=== PATIENT | male | born 1970 | race Caucasian/White ===

== ENCOUNTER 2016-09-24 08:17 | Emergency (ER) | payer MEDICAID ==
[~2016-09-24] VITALS: Ht 182.9 cm; Wt 127.0 kg
[2016-09-24 08:48] VITALS: BP_SYST 139
--- NOTE | 2016-09-24 08:53 | NUR ---
PATIENT TO ER BED 6.PER PATIENT HIS HEAD WAS HIT BY A BALL WHILE PLAYING WITH HIS SON ON WEDNESDAY TOOK MEDICINE BUT DID NOT HELP.PATIENT IS COMPLAINING OF SEVERE HEADACHE AND DIZZINESS STATED "I CAN'T TOLERATE BRIGHT LIGHTS".NO OTHER COMPLAIN/INJURIES PER PATIENT OR NOTED.
--- NOTE | 2016-09-24 08:57 | NUR ---
Triage at bedside Placed in room 06 . Placed on phototypesetting equipment monitor, blood pressure machine and pulse oximeter. To gown for exam. Side rails up. Report given to Joleen.
[2016-09-24] MEDS ORDERED: PROCHLORPERAZINE EDISYLATE 10 MG/2 ML VIAL IM ONE (09:00)
[2016-09-24] MEDS: ACETAMINOPHEN 500 MG TABLET PO ONE ×2 (09:02→09:09)
--- NOTE | 2016-09-24 09:11 | NUR ---
MARION Jalloh at bedside examining patient.
[2016-09-24] MEDS ORDERED: LORazepam 2 MG/ML VIAL (FOR ER USE) IM ONE (09:30)
[2016-09-24] MEDS ORDERED: FAMOTIDINE 20 MG TABLET PO ONE (09:30)
[2016-09-24] MEDS ORDERED: DIPHENHYDRAMINE INJ 50 MG/ML VIAL IM ONE (09:30)
--- NOTE | 2016-09-24 09:39 | NUR ---
PATIENT TO RADIOLOGY FOR CT
[2016-09-24 10:08] LABS: BASOPHILS % (AUTO) 0.5 % (0.0-2.0); EOSINOPHILS # (AUTO) 0.1 K/uL (0.0-0.4); EOSINOPHILS % (AUTO) 1.1 % (0.0-4.0); HEMATOCRIT 43.9 % (36-54); HEMOGLOBIN 14.2 g/dL (14.0-18.0); LYMPHOCYTES # (AUTO) 2.1 K/uL (1.0-5.5); LYMPHOCYTES % (AUTO) 20.7 % (20.5-51.5); MEAN CORPUSCULAR HEMOGLOBIN 27 pg (27-31); MEAN CORPUSCULAR HGB CONC 32 % (32-36); MEAN CORPUSCULAR VOLUME 85 fL (79.0-98.0); MONOCYTES # (AUTO) 1.1 K/uL (0.0-1.0); MONOCYTES % (AUTO) 11.3 % (1.7-9.3); NEUTROPHILS # (AUTO) 6.7 K/uL (1.8-7.7); NEUTROPHILS % (AUTO) 66.4 % (40.0-70.0); PLATELET COUNT (AUTO) 236 K/uL (130-430); RED BLOOD CELL COUNT(AUTO) 5.17 MIL/uL (4.2-6.2); RED CELL DISTRIBUTION WIDTH 14.6 % (9.0-15.0)
[2016-09-24 10:36] LABS: CALCIUM 8.7 mg/dL (8.4-11.0); CREATININE 0.79 mg/dL (0.55-1.30); POTASSIUM 4.5 mmol/L (3.5-5.1)
[2016-09-24 10:38] LABS: ALBUMIN 3.3 g/dL (3.4-4.8); TOTAL BILIRUBIN 0.4 mg/dL (0.0-1.0); TOTAL PROTEIN, SERUM 6.8 g/dL (6.4-8.3)
[2016-09-24] MEDS ORDERED: KETOROLAC TROMETHAMINE 60 MG/2 ML VIAL IM ONE (11:15)
[2016-09-24 11:33] VITALS: BP_SYST 133
--- NOTE | 2016-09-24 11:33 | NUR ---
Patient given written and verbal discharge instructions and verbalizes understanding. ER MD discussed with patient the results and treatment provided. Patient in stable condition. ID arm band removed. Patient educated on pain management and to follow up with PMD. Pain Scale 2/10 . Opportunity for questions provided and answered.
== END 2016-09-24 11:33 | disposition home or self-care (01) ==
LOC: SED 08:17
DX: S00.93XA Contusion of unspecified part of head, initial encounter (principal); Y93.64 Activity, baseball; Y92.89 Other specified places as the place of occurrence of the external cause; Y99.8 Other external cause status
CPT/HCPCS: 36415; 70450; 80053; 85025; 96372; 99285; J0780; J1200; J2060

== ENCOUNTER 2019-05-29 22:20 | Inpatient (IN) | payer MEDICAID ==
[~2019-05-29] VITALS: Ht 188 cm; Wt 105.7 kg
[2019-05-29 22:20] VITALS: BP_SYST 140
[~2019-05-29 22:20] MED LIST: AMOX250C PO; CHOL200075 PO; FURO-149 PO; GABA800T PO; GLU500 PO; IBUP-1970 PO; SIMV10TA2 PO
[2019-05-29 23:27] LABS: BASOPHILS # (AUTO) 0.1 K/uL (0.0-0.2); BASOPHILS % (AUTO) 0.4 % (0.0-2.0); EOSINOPHILS % (AUTO) 0.1 % (0.0-4.0); HEMATOCRIT 40.6 % (36-54); LYMPHOCYTES # (AUTO) 1.7 K/uL (1.0-5.5); LYMPHOCYTES % (AUTO) 11.9 % (20.5-51.5); MEAN CORPUSCULAR HEMOGLOBIN 27 pg (27-31); MEAN CORPUSCULAR HGB CONC 32 % (32-36); MEAN CORPUSCULAR VOLUME 85 fL (79.0-98.0); MONOCYTES # (AUTO) 1.4 K/uL (0.0-1.0); MONOCYTES % (AUTO) 9.9 % (1.7-9.3); NEUTROPHILS # (AUTO) 11.1 K/uL (1.8-7.7); NEUTROPHILS % (AUTO) 77.7 % (40.0-70.0); PLATELET COUNT (AUTO) 241 K/uL (130-430); RED BLOOD CELL COUNT(AUTO) 4.75 MIL/uL (4.2-6.2); WHITE BLOOD COUNT (AUTO) 14.3 K/uL (4.8-10.8)
[2019-05-29 23:38] LABS: CALCIUM 8.1 mg/dL (8.4-11.0); CREATININE 1.28 mg/dL (0.55-1.30); POTASSIUM 3.4 mmol/L (3.5-5.1)
[2019-05-29 23:44] LABS: ALBUMIN 2.6 g/dL (3.4-4.8); TOTAL BILIRUBIN 0.9 mg/dL (0.0-1.0)
[2019-05-30] MEDS ORDERED: PIPERACILLIN/TAZO 3.375 GM in NS 50 ML IV ONE (00:15)
[2019-05-30] MEDS ORDERED: ASPIRIN 81 MG TAB.CHEW PO ONE (00:15)
[2019-05-30] MEDS ORDERED: NITROGLYCERIN LINGUAL 400 mCg/SPRAY SL PRN (00:15)
[2019-05-30 00:58] LABS: INR 1.1 (0.80-1.20); PROTHROMBIN TIME 10.8 SECS (9.5-12.5)
[2019-05-30] MEDS ORDERED: TEMAZEPAM 15 MG CAPSULE PO PRN (01:15)
[2019-05-30] MEDS ORDERED: METOCLOPRAMIDE HCL 10 MG/2 ML VIAL IVP PRN (01:15)
[2019-05-30] MEDS ORDERED: ONDANSETRON HCL 4 MG/2 ML VIAL IVP PRN ×2 (01:15→03:30)
[2019-05-30] MEDS ORDERED: PIPERACILLIN/TAZOBACTAM 3.375 GM/VIAL (ZOSYN) IV ONE (02:07)
[2019-05-30] MEDS ORDERED: MORPHINE 4 MG/ML INJ. SYRINGE IVP PRN (03:30)
[2019-05-30] MEDS ORDERED: cefTRIAXone 1 GM IVPB PREMIX 50 ML IV SCH (03:30)
[2019-05-30] MEDS ORDERED: ALBUTEROL SULFATE 0.083% 2.5 MG/3 ML VIAL.NEB INH PRN (03:30)
[2019-05-30] MEDS ORDERED: MORPHINE 2 MG/ML INJ. SYRINGE IVP PRN (03:30)
[2019-05-30 03:41] VITALS: BP_SYST 140
[2019-05-30] MEDS ORDERED: POTASSIUM CHLORIDE 10 MEQ TAB.PRT.SR PO SCH (03:45)
[2019-05-30] MEDS ORDERED: ENOXAPARIN SODIUM 100 MG/ML SYRINGE SUBCUT SCH (04:00)
[2019-05-30 04:02] VITALS: BP_SYST 125
[2019-05-30] MEDS ORDERED: cefTRIAXone 1 GM IVPB PREMIX 50 ML IV ONE (05:31)
[2019-05-30] MEDS: INSULIN LISPRO SLIDING SCALE 100 UNITS/ML VIAL (humaLOG) SUBCUT PRN ×3 (06:40→21:23)
[2019-05-30 08:27] LABS: BASOPHILS # (AUTO) 0.1 K/uL (0.0-0.2); BASOPHILS % (AUTO) 0.6 % (0.0-2.0); EOSINOPHILS # (AUTO) 0.1 K/uL (0.0-0.4); EOSINOPHILS % (AUTO) 0.8 % (0.0-4.0); HEMATOCRIT 39.6 % (36-54); HEMOGLOBIN 12.6 g/dL (14.0-18.0); LYMPHOCYTES # (AUTO) 2.4 K/uL (1.0-5.5); LYMPHOCYTES % (AUTO) 24.9 % (20.5-51.5); MEAN CORPUSCULAR HEMOGLOBIN 27 pg (27-31); MEAN CORPUSCULAR HGB CONC 32 % (32-36); MEAN CORPUSCULAR VOLUME 86 fL (79.0-98.0); MONOCYTES # (AUTO) 1.1 K/uL (0.0-1.0); MONOCYTES % (AUTO) 11.5 % (1.7-9.3); NEUTROPHILS # (AUTO) 6.1 K/uL (1.8-7.7); NEUTROPHILS % (AUTO) 62.2 % (40.0-70.0); PLATELET COUNT (AUTO) 226 K/uL (130-430); RED BLOOD CELL COUNT(AUTO) 4.58 MIL/uL (4.2-6.2); RED CELL DISTRIBUTION WIDTH 15.2 % (9.0-15.0); WHITE BLOOD COUNT (AUTO) 9.8 K/uL (4.8-10.8)
[2019-05-30 08:30] VITALS: BP_SYST 96
[2019-05-30] MEDS ORDERED: FUROSEMIDE 40 MG TABLET PO SCH (09:00)
[2019-05-30] MEDS ORDERED: FUROSEMIDE 20 MG/2 ML VIAL IVP ONE (09:00)
[2019-05-30] MEDS ORDERED: CARVEDILOL 6.25 MG TABLET (COREG) PO ONE (09:00)
[2019-05-30] MEDS ORDERED: LISINOPRIL 10 MG TABLET (PRINIVIL) PO ONE (09:00)
[2019-05-30 10:00] LABS: CALCIUM 8.4 mg/dL (8.4-11.0); CREATININE 1.19 mg/dL (0.55-1.30); POTASSIUM 3.3 mmol/L (3.5-5.1)
[2019-05-30 10:01] LABS: ALBUMIN 2.4 g/dL (3.4-4.8); TOTAL BILIRUBIN 0.5 mg/dL (0.0-1.0)
[2019-05-30] MEDS: ASPIRIN 325 MG TABLET PO SCH (10:06)
[2019-05-30] MEDS: GABAPENTIN 400 MG CAPSULE PO SCH ×3 (10:06→21:00)
[2019-05-30] MEDS ORDERED: POTASSIUM CHLORIDE 20 MEQ TAB.PRT.SR PO ONE (10:45)
[2019-05-30 12:32] VITALS: BP_SYST 98
[2019-05-30 16:45] VITALS: BP_SYST 115
[2019-05-30 20:00] VITALS: BP_SYST 137
[2019-05-30] MEDS ORDERED: ENOXAPARIN SODIUM 100 MG/ML SYRINGE SQ ONE (20:00)
[2019-05-30] MEDS: CARVEDILOL 6.25 MG TABLET (COREG) PO SCH (21:00)
[2019-05-30] MEDS: SIMVASTATIN 10 MG TABLET PO SCH (21:00)
[2019-05-31 00:28] VITALS: BP_SYST 119
[2019-05-31 07:25] LABS: ALBUMIN 2.3 g/dL (3.4-4.8); CALCIUM 8.5 mg/dL (8.4-11.0); CREATININE 0.97 mg/dL (0.55-1.30); POTASSIUM 3.8 mmol/L (3.5-5.1); THYROID STIMULATING HORMONE 2.05 uIu/mL (0.36-3.74); TOTAL BILIRUBIN 0.2 mg/dL (0.0-1.0)
[2019-05-31 07:44] LABS: BASOPHILS # (AUTO) 0.1 K/uL (0.0-0.2); BASOPHILS % (AUTO) 0.6 % (0.0-2.0); EOSINOPHILS # (AUTO) 0.1 K/uL (0.0-0.4); HEMATOCRIT 40.7 % (36-54); LYMPHOCYTES # (AUTO) 2.2 K/uL (1.0-5.5); MEAN CORPUSCULAR HEMOGLOBIN 28 pg (27-31); MEAN CORPUSCULAR HGB CONC 32 % (32-36); MEAN CORPUSCULAR VOLUME 86 fL (79.0-98.0); MONOCYTES # (AUTO) 0.9 K/uL (0.0-1.0); MONOCYTES % (AUTO) 11.7 % (1.7-9.3); NEUTROPHILS # (AUTO) 4.7 K/uL (1.8-7.7); NEUTROPHILS % (AUTO) 58.7 % (40.0-70.0); PLATELET COUNT (AUTO) 259 K/uL (130-430); RED BLOOD CELL COUNT(AUTO) 4.71 MIL/uL (4.2-6.2); RED CELL DISTRIBUTION WIDTH 15.3 % (9.0-15.0)
[2019-05-31 08:00] VITALS: BP_SYST 112
[2019-05-31] MEDS: GABAPENTIN 400 MG CAPSULE PO SCH (08:27)
[2019-05-31] MEDS: ASPIRIN 325 MG TABLET PO SCH (08:29)
[2019-05-31] MEDS: ENOXAPARIN SODIUM 100 MG/ML SYRINGE SQ SCH ×2 (08:30→23:54)
[2019-05-31] MEDS: CARVEDILOL 6.25 MG TABLET (COREG) PO SCH (08:30)
[2019-05-31] MEDS ORDERED: LISINOPRIL 10 MG TABLET (PRINIVIL) PO SCH (09:00)
[2019-05-31] MEDS ORDERED: FUROSEMIDE 20 MG/2 ML VIAL IVP SCH (09:00)
[2019-05-31] MEDS ORDERED: cefTRIAXone 1 GM IVPB PREMIX 50 ML IV SCH (09:00)
[2019-05-31] MEDS ORDERED: FUROSEMIDE 40 MG/4 ML VIAL IVP SCH ×2 (09:30→21:00)
[2019-05-31] MEDS ORDERED: FUROSEMIDE 20 MG/2 ML VIAL IVP ONE (09:45)
[2019-05-31] MEDS ORDERED: SPIRONOLACTONE 25 MG TABLET (ALDACTONE) PO ONE (10:00)
[2019-05-31 12:00] VITALS: BP_SYST 112
[2019-05-31 17:22] VITALS: BP_SYST 118
[2019-05-31 20:00] VITALS: BP_SYST 118
[2019-05-31] MEDS ORDERED: CARVEDILOL 12.5 MG TABLET (COREG) PO SCH (21:00)
[2019-05-31] MEDS: SIMVASTATIN 10 MG TABLET PO SCH (23:48)
[2019-06-01] MEDS: INSULIN LISPRO SLIDING SCALE 100 UNITS/ML VIAL (humaLOG) SUBCUT PRN (06:11)
[2019-06-01] MEDS ORDERED: SPIRONOLACTONE 25 MG TABLET (ALDACTONE) PO SCH (09:00)
== END 2019-06-01 07:30 | disposition left against medical advice (07) | DRG 194 ==
LOC: SED 22:20 → STU 05-30 01:04
PROVIDERS: ADMIT Internal Medicine Hospice and Palliative Medicine; ATTEND Internal Medicine Hospice and Palliative Medicine
DX: I11.0 Hypertensive heart disease with heart failure (principal); I21.4 Non-ST elevation (NSTEMI) myocardial infarction; E43 Unspecified severe protein-calorie malnutrition; L03.115 Cellulitis of right lower limb; E87.2 Acidosis; E87.1 Hypo-osmolality and hyponatremia; L03.116 Cellulitis of left lower limb; I50.43 Acute on chronic combined systolic (congestive) and diastolic (congestive) heart failure; E87.6 Hypokalemia; I25.10 Atherosclerotic heart disease of native coronary artery without angina pectoris; E11.9 Type 2 diabetes mellitus without complications; E78.5 Hyperlipidemia, unspecified; F12.90 Cannabis use, unspecified, uncomplicated; I42.0 Dilated cardiomyopathy; J44.9 Chronic obstructive pulmonary disease, unspecified; Z59.0 Homelessness; Z68.29 Body mass index [BMI] 29.0-29.9, adult; Z79.899 Other long term (current) drug therapy; Z91.013 Allergy to seafood; Z63.8 Other specified problems related to primary support group; Z83.3 Family history of diabetes mellitus; Z87.891 Personal history of nicotine dependence; Z91.19 Patient's noncompliance with other medical treatment and regimen
CPT/HCPCS: 36415; 71045; 80053; 80061; 82962; 83036; 83605; 83880; 84443-TC; 84484; 85025; 85610-TC; 85730-TC; 86710; 87040-TC; 93005; 93970; 99285; G0378; J0696; J1650; J1940; J2270; J2543

== ENCOUNTER 2019-07-09 07:57 | Emergency (ER) | payer MEDICAID ==
[~2019-07-09] VITALS: Ht 182.9 cm; Wt 99.8 kg
[2019-07-09 08:00] VITALS: BP_SYST 110
--- NOTE | 2019-07-09 08:10 | NUR ---
Patient to ER bed 2 to gown for evaluation. Side rails up. Report given to Josefina DOZIER.ER Tracy Mcdonald at bedside examining patient.
--- NOTE | 2019-07-09 08:10 | NUR ---
ER at bedside examining patient.
--- NOTE | 2019-07-09 08:10 | NUR ---
Patient arrived via ALS ambulance, patient repeating self. Per EMS report patient was at [facility] and per staff he was sitting in a kelley for over 1 hour prior to the police being called. Because of prior interactions with PD, they requested an ambulance because he is not acting the same as prior interactions. They were concerned regarding his well being. Patient states he went there for breakfast and did not receive it, and he just wants something to eat. Patient repeating himself. Patient is on Eliquis, and patient states he recently had a fall. Patients skin is diaphoretic, and patient states he was on Eliquis for DVT and PT. Patient also notes he takes metformin but denies diabetes. Patient states history of renal failure after taking 2700mg of gabapentin daily. Patient repeating same phrases. MD at bedside. Patient asked if he was saying the wrong things, and Dr. Esquivel told him he was repeating himself, patient states he was aware of this. Patient is tachycardic, but is stating he doesnt want any testing, he only wants something to eat. While waiting for breakfast tray, he was given orange juice. Patient states he already feels better. Patients blood glucose with EMS was 139mg/dl, and after 1 box of orange juice blood sugar rechecked at 150mg/dl. MD made aware. Patient states he has been sleeping sitting upright, and has had a cough for several months now. Patient initially refused all testing.
--- NOTE | 2019-07-09 08:25 | NUR ---
Patient refused EKG.
--- NOTE | 2019-07-09 08:27 | NUR ---
Patient refusing blood draw, wildlife refuge manager, further vital signs, and CT scan.
--- NOTE | 2019-07-09 08:56 | NUR ---
Patient ambulatory to restroom with steady gait. Patient is calm; however, non-compliant with further testing. MD aware, patient would like to go. MD states it will need to be against medical advice.
--- NOTE | 2019-07-09 09:00 | NUR ---
Patient does not wish to proceed with medical care recommended by Dr. Yumi Esquivel. Patient given information related to possible complications, up to and including , which could occur as a result of leaving hospital at this time. Patient verbalizes understanding of risks involved leaving against medical advice. Patient has signed AMA form. Patient encouraged to return if symptoms become worse. Patient verbalized understanding.
== END 2019-07-09 09:00 | disposition left against medical advice (07) ==
LOC: SED 07:57
DX: F10.10 Alcohol abuse, uncomplicated (principal); R53.1 Weakness; F17.200 Nicotine dependence, unspecified, uncomplicated; E11.29 Type 2 diabetes mellitus with other diabetic kidney complication; N28.9 Disorder of kidney and ureter, unspecified; I11.0 Hypertensive heart disease with heart failure; I50.9 Heart failure, unspecified; Z91.013 Allergy to seafood; Z79.899 Other long term (current) drug therapy; Z86.2 Personal history of diseases of the blood and blood-forming organs and certain disorders involving the immune mechanism; Y90.9 Presence of alcohol in blood, level not specified
CPT/HCPCS: 82962; 99283

== ENCOUNTER 2019-07-31 16:07 | Inpatient (IN) | payer MEDICAID ==
[~2019-07-31] VITALS: Ht 182.9 cm; Wt 102.3 kg
[2019-07-31 16:18] VITALS: BP_SYST 111
[2019-07-31] MEDS ORDERED: DILTIAZEM HCL 25 MG/5 ML VIAL IVP ONE (16:30)
[2019-07-31 17:07] LABS: BASOPHILS # (AUTO) 0.1 K/uL (0.0-0.2); BASOPHILS % (AUTO) 1.2 % (0.0-2.0); EOSINOPHILS # (AUTO) 0.1 K/uL (0.0-0.4); EOSINOPHILS % (AUTO) 0.5 % (0.0-4.0); HEMATOCRIT 48.7 % (36-54); HEMOGLOBIN 15.5 g/dL (14.0-18.0); LYMPHOCYTES # (AUTO) 1.7 K/uL (1.0-5.5); LYMPHOCYTES % (AUTO) 17.3 % (20.5-51.5); MEAN CORPUSCULAR HEMOGLOBIN 26 pg (27-31); MEAN CORPUSCULAR HGB CONC 32 % (32-36); MEAN CORPUSCULAR VOLUME 82 fL (79.0-98.0); MONOCYTES # (AUTO) 0.9 K/uL (0.0-1.0); MONOCYTES % (AUTO) 8.9 % (1.7-9.3); NEUTROPHILS # (AUTO) 7.2 K/uL (1.8-7.7); NEUTROPHILS % (AUTO) 72.1 % (40.0-70.0); PLATELET COUNT (AUTO) 338 K/uL (130-430); RED BLOOD CELL COUNT(AUTO) 5.96 MIL/uL (4.2-6.2); RED CELL DISTRIBUTION WIDTH 17.7 % (9.0-15.0)
[2019-07-31 17:18] LABS: CALCIUM 8.9 mg/dL (8.4-11.0); CREATININE 2.47 mg/dL (0.55-1.30); POTASSIUM 5.1 mmol/L (3.5-5.1)
[2019-07-31 17:27] LABS: ALBUMIN 3.9 g/dL (3.4-4.8); TOTAL BILIRUBIN 0.3 mg/dL (0.0-1.0)
[2019-07-31] MEDS ORDERED: FUROSEMIDE 40 MG/4 ML VIAL IVP ONE (18:00)
[2019-07-31] MEDS ORDERED: ONDANSETRON HCL 4 MG/2 ML VIAL IVP PRN (20:30)
[2019-07-31] MEDS ORDERED: ALBUTEROL SULFATE 0.083% 2.5 MG/3 ML VIAL.NEB INH PRN (20:30)
[2019-07-31] MEDS ORDERED: INSULIN REGULAR, HUMAN 100 UNITS/ML, 10 ML VIAL (humuLIN R) SUBCUT PRN (20:30)
[2019-07-31] MEDS ORDERED: ACETAMINOPHEN 325 MG TABLET PO PRN (20:30)
[2019-07-31] MEDS ORDERED: HYDROcodone/ACETAMIN 5-325 MG TAB (NORCO/ VICODIN) PO PRN (20:30)
[2019-07-31] MEDS ORDERED: GABAPENTIN 400 MG CAPSULE PO SCH (21:00)
[2019-07-31 21:15] VITALS: BP_SYST 100
[2019-07-31] MEDS ORDERED: cefTRIAXone 1 GM IVPB PREMIX 50 ML IV ONE ×2 (22:04→23:34)
[2019-07-31] MEDS: SIMVASTATIN 10 MG TABLET PO SCH (23:20)
[2019-07-31] MEDS: cefTRIAXone 1 GM IVPB PREMIX 50 ML IV SCH (23:20)
[2019-07-31] MEDS: NORMAL SALINE 5 ML DISP.SYRIN IVF SCH (23:22)
[2019-07-31 23:30] VITALS: BP_SYST 105
[2019-08-01] MEDS ORDERED: APIX5TAB PO (03:02)
[2019-08-01 04:04] VITALS: BP_SYST 102
[2019-08-01] MEDS: NORMAL SALINE 5 ML DISP.SYRIN IVF SCH ×3 (05:46→20:58)
[2019-08-01] MEDS ORDERED: MORPHINE 4 MG/ML INJ. SYRINGE IVP ONE (06:00)
[2019-08-01 06:27] LABS: BASOPHILS # (AUTO) 0.1 K/uL (0.0-0.2); BASOPHILS % (AUTO) 0.8 % (0.0-2.0); EOSINOPHILS # (AUTO) 0.2 K/uL (0.0-0.4); EOSINOPHILS % (AUTO) 2.6 % (0.0-4.0); HEMATOCRIT 43.1 % (36-54); HEMOGLOBIN 13.6 g/dL (14.0-18.0); LYMPHOCYTES % (AUTO) 34.6 % (20.5-51.5); MEAN CORPUSCULAR HEMOGLOBIN 26 pg (27-31); MEAN CORPUSCULAR HGB CONC 32 % (32-36); MEAN CORPUSCULAR VOLUME 81 fL (79.0-98.0); MONOCYTES # (AUTO) 1.5 K/uL (0.0-1.0); MONOCYTES % (AUTO) 17.3 % (1.7-9.3); NEUTROPHILS # (AUTO) 3.9 K/uL (1.8-7.7); NEUTROPHILS % (AUTO) 44.7 % (40.0-70.0); PLATELET COUNT (AUTO) 276 K/uL (130-430); RED CELL DISTRIBUTION WIDTH 17.6 % (9.0-15.0); WHITE BLOOD COUNT (AUTO) 8.7 K/uL (4.8-10.8)
[2019-08-01 07:09] LABS: ALBUMIN 3.2 g/dL (3.4-4.8); CALCIUM 8.7 mg/dL (8.4-11.0); CREATININE 1.73 mg/dL (0.55-1.30); POTASSIUM 4.5 mmol/L (3.5-5.1); TOTAL BILIRUBIN 0.3 mg/dL (0.0-1.0)
[2019-08-01 08:30] VITALS: BP_SYST 99
[2019-08-01] MEDS: FUROSEMIDE 40 MG/4 ML VIAL IVP SCH (09:00)
[2019-08-01] MEDS: APIXABAN 2.5 MG TABLET PO SCH ×2 (09:09→20:49)
[2019-08-01] MEDS: CARVEDILOL 6.25 MG TABLET (COREG) PO ONE ×2 (11:10→11:24)
[2019-08-01 12:05] VITALS: BP_SYST 105
[2019-08-01] MEDS ORDERED: MORPHINE 2 MG/ML INJ. SYRINGE IVP PRN (15:30)
[2019-08-01 16:11] VITALS: BP_SYST 113
[2019-08-01 19:30] VITALS: BP_SYST 94
[2019-08-01] MEDS: SIMVASTATIN 10 MG TABLET PO SCH (20:44)
[2019-08-01] MEDS: cefTRIAXone 1 GM IVPB PREMIX 50 ML IV SCH (20:46)
[2019-08-01] MEDS: CARVEDILOL 6.25 MG TABLET (COREG) PO SCH (20:53)
[2019-08-02 00:39] VITALS: BP_SYST 102
[2019-08-02] MEDS: NORMAL SALINE 5 ML DISP.SYRIN IVF SCH (05:45)
[2019-08-02 08:03] VITALS: BP_SYST 112
[2019-08-02] MEDS: CARVEDILOL 6.25 MG TABLET (COREG) PO SCH (08:43)
[2019-08-02] MEDS: FUROSEMIDE 40 MG/4 ML VIAL IVP SCH (08:43)
[2019-08-02] MEDS: APIXABAN 2.5 MG TABLET PO SCH (08:44)
== END 2019-08-02 09:40 | disposition left against medical advice (07) | DRG 194 ==
LOC: SED 16:07 → STU 19:35
PROVIDERS: ADMIT Internal Medicine; ATTEND Internal Medicine
DX: I11.0 Hypertensive heart disease with heart failure (principal); I21.A1 Myocardial infarction type 2; N17.0 Acute kidney failure with tubular necrosis; I50.41 Acute combined systolic (congestive) and diastolic (congestive) heart failure; N17.9 Acute kidney failure, unspecified; I42.0 Dilated cardiomyopathy; L97.919 Non-pressure chronic ulcer of unspecified part of right lower leg with unspecified severity; I47.1 Supraventricular tachycardia; J44.9 Chronic obstructive pulmonary disease, unspecified; E11.9 Type 2 diabetes mellitus without complications; F10.10 Alcohol abuse, uncomplicated; Z53.29 Procedure and treatment not carried out because of patient's decision for other reasons; I42.7 Cardiomyopathy due to drug and external agent; T50.995A Adverse effect of other drugs, medicaments and biological substances, initial encounter; Y92.89 Other specified places as the place of occurrence of the external cause; Z59.0 Homelessness; Z91.14 Patient's other noncompliance with medication regimen; Z79.01 Long term (current) use of anticoagulants; Z86.718 Personal history of other venous thrombosis and embolism; Z82.49 Family history of ischemic heart disease and other diseases of the circulatory system; Z87.891 Personal history of nicotine dependence; Z91.013 Allergy to seafood; Z79.899 Other long term (current) drug therapy
CPT/HCPCS: 36415; 71045; 80053; 82962; 83880; 84484; 85025; 87040-TC; 87081; 93005; 96374; 96375; 99285; G0378; J0696; J1940; J2270; J3490

== ENCOUNTER 2019-08-15 07:49 | Emergency (ER) | payer MEDICAID ==
[~2019-08-15] VITALS: Ht 182.9 cm; Wt 107.0 kg
[~2019-08-15 07:49] MED LIST changes: +APIX5TAB PO
[2019-08-15 07:57] VITALS: BP_SYST 139
[2019-08-15 08:47] LABS: INR 1.1 (0.80-1.20); PROTHROMBIN TIME 10.6 SECS (9.5-12.5)
[2019-08-15 08:51] LABS: ALBUMIN 2.7 g/dL (3.4-4.8); CALCIUM 8.5 mg/dL (8.4-11.0); CREATININE 0.95 mg/dL (0.55-1.30); POTASSIUM 4.5 mmol/L (3.5-5.1); TOTAL BILIRUBIN 0.4 mg/dL (0.0-1.0)
[2019-08-15 08:52] LABS: BASOPHILS % (AUTO) 0.4 % (0.0-2.0); EOSINOPHILS # (AUTO) 0.1 K/uL (0.0-0.4); EOSINOPHILS % (AUTO) 0.5 % (0.0-4.0); HEMATOCRIT 41.8 % (36-54); HEMOGLOBIN 13.2 g/dL (14.0-18.0); LYMPHOCYTES # (AUTO) 2.1 K/uL (1.0-5.5); LYMPHOCYTES % (AUTO) 20.6 % (20.5-51.5); MEAN CORPUSCULAR HEMOGLOBIN 26 pg (27-31); MEAN CORPUSCULAR HGB CONC 32 % (32-36); MEAN CORPUSCULAR VOLUME 81 fL (79.0-98.0); MONOCYTES % (AUTO) 9.4 % (1.7-9.3); NEUTROPHILS # (AUTO) 7.1 K/uL (1.8-7.7); NEUTROPHILS % (AUTO) 69.1 % (40.0-70.0); PLATELET COUNT (AUTO) 225 K/uL (130-430); RED BLOOD CELL COUNT(AUTO) 5.14 MIL/uL (4.2-6.2); RED CELL DISTRIBUTION WIDTH 18.7 % (9.0-15.0); WHITE BLOOD COUNT (AUTO) 10.3 K/uL (4.8-10.8)
[2019-08-15 09:34] VITALS: BP_SYST 139
== END 2019-08-15 09:33 | disposition home or self-care (01) ==
LOC: SED 07:49
DX: J18.9 Pneumonia, unspecified organism (principal); R04.2 Hemoptysis; I11.0 Hypertensive heart disease with heart failure; I50.9 Heart failure, unspecified; J44.9 Chronic obstructive pulmonary disease, unspecified; E11.29 Type 2 diabetes mellitus with other diabetic kidney complication; N28.9 Disorder of kidney and ureter, unspecified; I87.2 Venous insufficiency (chronic) (peripheral); Z86.2 Personal history of diseases of the blood and blood-forming organs and certain disorders involving the immune mechanism; Z79.899 Other long term (current) drug therapy; Z91.013 Allergy to seafood
CPT/HCPCS: 36415; 71045; 80053; 85025; 85610-TC; 99284